=== PATIENT | male | born 1970 | race Caucasian/White ===

== ENCOUNTER → 2024-04-08 | Outpatient (CLI) | payer SELFPAY | END | disposition home or self-care (01) | DX: R42 Dizziness and giddiness (principal); R53.83 Other fatigue; R19.5 Other fecal abnormalities | CPT/HCPCS: 76499 ==

== ENCOUNTER → 2024-09-10 | Outpatient (CLI) | payer SELFPAY | END | disposition home or self-care (01) | DX: E78.2 Mixed hyperlipidemia (principal); E66.9 Obesity, unspecified; Z68.30 Body mass index [BMI] 30.0-30.9, adult | CPT/HCPCS: 76499 ==

== ENCOUNTER → 2025-04-20 | Outpatient (CLI) | payer SELFPAY ==
--- OUTSIDE RECORDS SUMMARY | 2024-09-08 11:20 | XMS RPT_ITS ---
Author Name Auto Generated Organization OHIP Care Team Providers Care Presser Machine Name Role Phone CEDRIC WASHINGTON Attending Unavailable SKUGOR, CEDRIC Primary Care Unavailable SKUGCATIA, CEDRIC Referring Unavailable SKUGOR, CEDRIC Primary Care Unavailable SKUGOR, CEDRIC Attending Unavailable SKUGOR, CEDRIC Primary Care Unavailable SERVANDO THURSTON Attending Unavailable SKUGOR, CEDRIC Primary Care Unavailable PROBLEMS No Problem Records Found PROCEDURES No Procedure Records Found RESULTS CNOV Observed: 09/08/2024 10:20 AM Status: COMPLETED Source: [facility] Office Visit (INMTWN) VALERIO ELLIS ([id number]) 1970 M Date Time Provider Department 09/08/24 10:20 AM [facility] W[facility] During your visit today, we recorded the following information about you: Pulse Blood pressure Weight Height 66/minute 125/74 81 kg 1.74 m Cedric Washington MD 09/08/2024 1:27 PM Signed Chief complaint: Valerio Ellis is a 54 year old adult who presents for a comprehensive problem evaluation. He feels good today and does not have any new complaints. Hx Itchy rash under his arm - resolved Work - at [employer] He lost significant weight ~60 lbs on keto diet He is following a keto/low-carb diet Eats berries and egyptian yogurt He is taking a sodium/magnesium/potassium drink supplement. He stopped Lexapro. Weaned off of bupropion. Colonoscopy 11/2020 Sessile serrated polyp due 5 yrs He thinks that natural sugar from fruit triggers his cravings for sugar. His CT coronary calcium score was 0 on 08/2023 Work: finance Exercise - bike He was taking Valtrex - pos HSV IgG 1 Bupropion and escitalopram 20 mg for depression/anxiety stopped. Up to date with dental and eye exams Latest Ref Rng 08/25/2024 Protein, Total 6.3 - 8.0 g/dL 6.7 Albumin 3.9 - 4.9 g/dL 4.3 Calcium 8.5 - 10.2 mg/dL 9.4 Bilirubin, Total 0.2 - 1.3 mg/dL 0.4 Alkaline Phosphatase 38 - 113 U/L 87 AST 14 - 40 U/L 22 ALT 10 - 54 U/L 21 Glucose 74 - 99 mg/dL 93 BUN 9 - 24 mg/dL 23 Creatinine 0.73 - 1.22 mg/dL 0.90 Sodium 136 - 144 mmol/L 139 Potassium 3.7 - 5.1 mmol/L 4.5 Chloride 98 - 107 mmol/L 104 CO2 22 - 30 mmol/L 25 Anion Gap 8 - 15 mmol/L 10 eGFR >=60 mL/min/1.73m? 101 Cholesterol, Total <=199 mg/dL 222 (H) Triglycerides 30 - 149 mg/dL 51 HDL Cholesterol 40 - 59 mg/dL 75 (H) LDL Chol Calculated <=129 mg/dL 137 (H) LDL-P <=1135 nmol/L 1240 (H) Small LDL-P <=634 nmol/L 200 Large VLDL-P <=2.7 nmol/L 2.2 HDL-P >=33.0 umol/L 34.8 Large HDL-P >=4.2 umol/L 12.3 VLDL Size <=46.7 nm 48.7 (H) HDL Size >=8.9 nm 9.8 EER LipoFit by NMR See Note LDL Size >=20.7 nm 21.6 WBC 3.70 - 11.00 k/uL 5.41 RBC 4.20 - 6.00 m/uL 4.45 Hemoglobin 13.0 - 17.0 g/dL 14.3 Hematocrit 39.0 - 51.0 % 43.0 MCV 80.0 - 100.0 fL 96.6 MCH 26.0 - 34.0 pg 32.1 MCHC 30.5 - 36.0 g/dL 33.3 RDW-CV 11.5 - 15.0 % 12.6 Platelet Count 150 - 400 k/uL 192 MPV 9.0 - 12.7 fL 11.3 Absolute nRBC <0.01 k/uL <0.01 Cholesterol, Total <200 mg/dL 213 (H) Triglyceride <150 mg/dL 40 HDL Cholesterol >39 mg/dL 74 Non HDL Cholesterol <130 mg/dL 139 (H) Fasting Time hrs 12 VLDL Cholesterol <30 mg/dL 8 TC:HDL Ratio <5.10 2.88 LDL Cholesterol <100 mg/dL 131 (H) LDL:HDL Ratio <2.54 1.77 Apolipoprotein A-I >114 mg/dL 181 Apolipoprotein B <90 mg/dL 89 Apolipoprotein B/A-1 Ratio <0.7 0.5 Hemoglobin A1C 4.3 - 5.6 % 5.0 Estimated Average Glucose mg/dL 97 Vitamin D 25 Hydroxy 31.0 - 80.0 ng/mL 60.5 Vitamin B12 232 - 1,245 pg/mL 768 TSH 0.270 - 4.200 mIU/L 1.940 Testosterone ng/dL 455 Cortisol 4.8 - 19.5 ug/dL 15.8 Phosphorus mg/dL 3.6 Magnesium 1.7 - 2.3 mg/dL 2.2 UltraSens C-Reactive Protein <3.1 mg/L 0.5 GGT 10 - 70 U/L 13 Ferritin 30.3 - 565.7 ng/mL 217.0 WSR 0 - 15 mm/hr 2 DHEA-S 44.3 - 331.0 ug/dL 164.3 C-Peptide 1.1 - 4.4 ng/mL 1.7 Insulin, Free 2.6 - 24.9 uU/mL 4.5 Insulin, Total 2.6 - 24.9 uU/mL 6.2 Legend: (H) High PAST MEDICAL HISTORY Diagnosis Date Allergic rhinitis, cause unspecified Depression with anxiety in remission, 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 Drug use: No FAMILY HISTORY Problem Relation Age of Onset Allergies Mother Hypertension Mother Uterine Cancer Mother other (pancreatic ca) Maternal Grandfather Prostate Cancer Paternal Grandfather ? colon ca Hypertension Paternal Grandfather other (duodenal cancer) Paternal Grandfather MEDICATIONS hydrocortisone 2.5 % cream Apply 1 application to affected area two times a day. fluticasone (FLONASE) 50 mcg/actuation nasal spray SPRAY 1 SPRAY INTO EACH NOSTRIL AT BEDTIME valACYclovir (VALTREX) 1 gram tablet Take 2 tablets by mouth two times a day. For 1 day EPINEPHrine (EPIPEN 2-ROBLES) 0.3 mg/0.3 mL auto-injector Inject 0.3 mL intramuscularly as needed (Inject in thigh as needed for anaphylaxis and call 911). GENERIC OKAY Immunization History Administered Date(s) Administered COVID-19 original vaccine, age 12+ yr, monovalent ([email or web address] - KRISHNAN TOP) 02/19/2022 COVID-19 original vaccine, age 12+ yr, monovalent ([employer] - PURPLE TOP) 09/29/2020 10/27/2020 05/03/2021 COVID-19 vaccine, age 12+ yr ([employer] COMIRNATY) 04/25/2023 04/20/2024 COVID-19 vaccine, age 12+ yr, bivalent (MODERNA) 05/01/2024 COVID-19 vaccine, age 12+ yr, bivalent (PFI[employer]ER-BIONTECH) 05/10/2022 influenza (IIV3) vaccine, age 6 mo - 64 yr, trivalent (AFLURIA, FLULAVAL, FLUVIRIN, FLUZONE) 05/01/2024 influenza (IIV3) vaccine, trivalent (AFLURIA, FLULAVAL, FLUVIRIN, FLUZONE) 05/10/1997 influenza (IIV4) vaccine, age 6 mo - 64 yr, quadrivalent (AFLURIA, FLULAVAL, FLUZONE) 05/24/2017 influenza (IIV4) vaccine, age 6 mo - 64 yr, quadrivalent, PF (AFLURIA, FLUARIX, FLULAVAL, FLUZONE) 05/03/2021 influenza (ccIIV3) vaccine, age 6+ mo, trivalent, PF (FLUCELVAX) 04/20/2024 influenza (ccIIV4) vaccine, age 6+ mo, quadrivalent, PF (FLUCELVAX) 05/05/2018 05/06/2020 05/10/2022 tetanus diphtheria pertussis (Tdap) vaccine, age 7+ yr (ADACEL, BOOSTRIX) 10/01/2013 09/03/2023 zoster (RZV) vaccine, recombinant (SHINGRIX) 05/26/2021 10/10/2021 REVIEW OF SYSTEMS General: Denies fever, chills, night sweats or changes in weight. Dermatologic: Denies any new skin conditions, rashes or changing moles. Eyes:Denies recent visual changes. ENT:Denies hearing loss or tinnitus Respiratory: Denies any cough, dyspnea, or wheezing. Cardiovascular:Denies any chest pain with exertion or at rest, palpitations, syncope, or edema. Gastrointestinal: Denies any nausea, vomiting, abdominal pain, heartburn, changes in bowel habit,Denies melena,Denies any rectal bleeding. Genitourinary: Denies dysuria, frequency, urgency, incontinence, erectile dysfunction, and hematuria.,Denies problems with urinary stream. Musculoskeletal:Denies any joint swelling, joint pain, or loss of range of motion.,Denies back pain. Neurologic:Denies any headaches, tremors, dizziness, vertigo, memory loss, confusion.Denies weakness, numbness or tingling. Psychiatric:Denies sleeping problems, denies anxiety or depression. Hematologic/Lymphatic/Immunologic: Denies anemia, bruising, or bleeding abnormalities. Endocrine: Denies any heat or cold intolerance, polyuria or polydipsia. PHYSICAL EXAMINATION: BP 125/74 Pulse 66 Ht 174 cm (5' 8.5) Wt 81 kg (178 lb 9.2 oz) BMI 26.76 kg/m? GENERAL APPEARANCE: well appearing,in no acute distress. SKIN:Skin color, texture, turgor normal. No rashes or lesions. HEAD:No significant findings. EYES:PERRLA EARS: External ears normal. Canals clear. TM's normal. NOSE/SINUSES:Nares normal. Septum midline. OROPHARYNX:Lips, mucosa, and tongue normal, gums normal,oropharynx normal. NECK: Supple,full range of motion,no lymphadenopathy,normal thyroid,no carotid bruits,no JVD. BACK:Back symmetric,Normal curvature,ROM normal,No CVAT. LUNGS: Normal breath sounds,Clear to auscultation,No wheezes,No crackles. HEART:Regular rate and rhythm,Normal heart sounds, S1 and S2,No murmurs. ABDOMEN: Soft,Non-tender,No palpable masses,Normal bowel sounds,No abdominal bruits,No hepatosplenomegaly. EXTREMITIES:Extremities normal,No deformities,No skin discoloration,No edema,Normal pulses bilaterally. NEURO: Awake, alert and oriented x 3,Cranial nerves II-XII grossly intact,Reflexes symmetrical,Normal gait,No involuntary motions. GENITALIA: deferred RECTAL: deferred ASSESSMENT/PLAN: 1. Physical exam, routine - ICD9: V70.0, ICD10: Z00.00 (primary diagnosis) - Counseled on healthy diet and regular exercise 2. Screening for depression - ICD9: V79.0, ICD10: Z13.31 - DEPRESSION SCREENING 3. Encounter for screening examination for other mental health and behavioral disorders - ICD9: V79.8, ICD10: Z13.39 - ANXIETY SCREENING Cedric Washington MD Allergies As of Date: 09/08/2024 Noted Allergy Reaction CLINDAMYCIN 03/15/2006 11 - Vomiting SEASONAL ALLERGIES 07/16/2014 3 - Cough Date Reviewed: 09/08/2024 Reviewed by: Sandra Serrano LPN - Fully Assessed Reason for Visit: Physical [83] Primary Visit Diagnosis:Physical exam, routine [Z00.00] Other Visit Diagnoses:Screening for depression [Z13.31] Encounter for screening examination for other mental health and behavioral disorders [Z13.39] Order(s):DEPRESSION SCREENING [3329463] Order #: [id number]: 1 ANXIETY SCREENING [[id number]] Order #: [id number]: 1 Prescriptions as of 09/08/2024 - hydrocortisone 2.5 % cream Apply 1 application to affected area two times a day. - valACYclovir (VALTREX) 1 gram tablet Take 2 tablets by mouth two times a day. For 1 day - EPINEPHrine (EPIPEN 2-ROBLES) 0.3 mg/0.3 mL auto-injector Inject 0.3 mL intramuscularly as needed (Inject in thigh as needed for anaphylaxis and call 911). GENERIC OKAY Problem List As Of Date 09/08/2024 Noted Resolved Allergic rhinitis, cause unspecified [J30.9] 04/22/2012 Essential hypertension, benign [I10] 04/22/2012 10/01/2013 BPPV (benign paroxysmal positional vertigo), le*10/12/2020 Medications Discontinued During This Encounter Prescriptions - fluticasone (FLONASE) 50 mcg/actuation nasal spray (Discontinued) SPRAY 1 SPRAY INTO EACH NOSTRIL AT BEDTIME Disposition: Return in about 1 year (around 09/08/2025) for Dr Washington, physical exam. Follow-up and Disposition History for Encounter Date Provider Department Center 09/08/2024 [id number] WASHINGTON INMT[facility] Encounter Status:Closed by CEDRIC WASHINGTON on 09/08/24 PROGRESS Observed: 09/08/2024 10:13 AM Status: COMPLETED Source: [facility] ID: [id number] Author: CEDRIC WASHINGTON MD Service: ? Author Type: Physician Type: [facility] Notes Filed: 09/08/2024 13:27 Note Text: Chief complaint: Valerio Ellis is a 54 year old adult who presents for a comprehensive problem evaluation. He feels good today and does not have any new complaints. Hx Itchy rash under his arm - resolved Work - at [employer] He lost significant weight ~60 lbs on keto diet He is following a keto/low-carb diet Eats berries and egyptian yogurt He is taking a sodium/magnesium/potassium drink supplement. He stopped Lexapro. Weaned off of bupropion. Colonoscopy 11/2020 Sessile serrated polyp due 5 yrs He thinks that natural sugar from fruit triggers his cravings for sugar. His CT coronary calcium score was 0 on 08/2023 Work: finance Exercise - bike He was taking Valtrex - pos HSV IgG 1 Bupropion and escitalopram 20 mg for depression/anxiety stopped. Up to date with dental and eye exams Latest Ref Rng 08/25/2024 Protein, Total 6.3 - 8.0 g/dL 6.7 Albumin 3.9 - 4.9 g/dL 4.3 Calcium 8.5 - 10.2 mg/dL 9.4 Bilirubin, Total 0.2 - 1.3 mg/dL 0.4 Alkaline Phosphatase 38 - 113 U/L 87 AST 14 - 40 U/L 22 ALT 10 - 54 U/L 21 Glucose 74 - 99 mg/dL 93 BUN 9 - 24 mg/dL 23 Creatinine 0.73 - 1.22 mg/dL 0.90 Sodium 136 - 144 mmol/L 139 Potassium 3.7 - 5.1 mmol/L 4.5 Chloride 98 - 107 mmol/L 104 CO2 22 - 30 mmol/L 25 Anion Gap 8 - 15 mmol/L 10 eGFR >=60 mL/min/1.73m? 101 Cholesterol, Total <=199 mg/dL 222 (H) Triglycerides 30 - 149 mg/dL 51 HDL Cholesterol 40 - 59 mg/dL 75 (H) LDL Chol Calculated <=129 mg/dL 137 (H) LDL-P <=1135 nmol/L 1240 (H) Small LDL-P <=634 nmol/L 200 Large VLDL-P <=2.7 nmol/L 2.2 HDL-P >=33.0 umol/L 34.8 Large HDL-P >=4.2 umol/L 12.3 VLDL Size <=46.7 nm 48.7 (H) HDL Size >=8.9 nm 9.8 EER LipoFit by NMR See Note LDL Size >=20.7 nm 21.6 WBC 3.70 - 11.00 k/uL 5.41 RBC 4.20 - 6.00 m/uL 4.45 Hemoglobin 13.0 - 17.0 g/dL 14.3 Hematocrit 39.0 - 51.0 % 43.0 MCV 80.0 - 100.0 fL 96.6 MCH 26.0 - 34.0 pg 32.1 MCHC 30.5 - 36.0 g/dL 33.3 RDW-CV 11.5 - 15.0 % 12.6 Platelet Count 150 - 400 k/uL 192 MPV 9.0 - 12.7 fL 11.3 Absolute nRBC <0.01 k/uL <0.01 Cholesterol, Total <200 mg/dL 213 (H) Triglyceride <150 mg/dL 40 HDL Cholesterol >39 mg/dL 74 Non HDL Cholesterol <130 mg/dL 139 (H) Fasting Time hrs 12 VLDL Cholesterol <30 mg/dL 8 TC:HDL Ratio <5.10 2.88 LDL Cholesterol <100 mg/dL 131 (H) LDL:HDL Ratio <2.54 1.77 Apolipoprotein A-I >114 mg/dL 181 Apolipoprotein B <90 mg/dL 89 Apolipoprotein B/A-1 Ratio <0.7 0.5 Hemoglobin A1C 4.3 - 5.6 % 5.0 Estimated Average Glucose mg/dL 97 Vitamin D 25 Hydroxy 31.0 - 80.0 ng/mL 60.5 Vitamin B12 232 - 1,245 pg/mL 768 TSH 0.270 - 4.200 mIU/L 1.940 Testosterone ng/dL 455 Cortisol 4.8 - 19.5 ug/dL 15.8 Phosphorus mg/dL 3.6 Magnesium 1.7 - 2.3 mg/dL 2.2 UltraSens C-Reactive Protein <3.1 mg/L 0.5 GGT 10 - 70 U/L 13 Ferritin 30.3 - 565.7 ng/mL 217.0 WSR 0 - 15 mm/hr 2 DHEA-S 44.3 - 331.0 ug/dL 164.3 C-Peptide 1.1 - 4.4 ng/mL 1.7 Insulin, Free 2.6 - 24.9 uU/mL 4.5 Insulin, Total 2.6 - 24.9 uU/mL 6.2 Legend: (H) High PAST MEDICAL HISTORY Diagnosis Date Allergic rhinitis, cause unspecified Depression with anxiety in remission, 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 Drug use: No FAMILY HISTORY Problem Relation Age of Onset Allergies Mother Hypertension Mother Uterine Cancer Mother other (pancreatic ca) Maternal Grandfather Prostate Cancer Paternal Grandfather ? colon ca Hypertension Paternal Grandfather other (duodenal cancer) Paternal Grandfather MEDICATIONS hydrocortisone 2.5 % cream Apply 1 application to affected area two times a day. fluticasone (FLONASE) 50 mcg/actuation nasal spray SPRAY 1 SPRAY INTO EACH NOSTRIL AT BEDTIME valACYclovir (VALTREX) 1 gram tablet Take 2 tablets by mouth two times a day. For 1 day EPINEPHrine (EPIPEN 2-ROBLES) 0.3 mg/0.3 mL auto-injector Inject 0.3 mL intramuscularly as needed (Inject in thigh as needed for anaphylaxis and call 911). GENERIC OKAY Immunization History Administered Date(s) Administered COVID-19 original vaccine, age 12+ yr, monovalent ([email or web address] - KRISHNAN TOP) 02/19/2022 COVID-19 original vaccine, age 12+ yr, monovalent ([employer] - PURPLE TOP) 09/29/2020 10/27/2020 05/03/2021 COVID-19 vaccine, age 12+ yr ([employer] COMIRNATY) 04/25/2023 04/20/2024 COVID-19 vaccine, age 12+ yr, bivalent (MODERNA) 05/01/2024 COVID-19 vaccine, age 12+ yr, bivalent ([employer]) 05/10/2022 influenza (IIV3) vaccine, age 6 mo - 64 yr, trivalent (AFLURIA, FLULAVAL, FLUVIRIN, FLUZONE) 05/01/2024 influenza (IIV3) vaccine, trivalent (AFLURIA, FLULAVAL, FLUVIRIN, FLUZONE) 05/10/1997 influenza (IIV4) vaccine, age 6 mo - 64 yr, quadrivalent (AFLURIA, FLULAVAL, FLUZONE) 05/24/2017 influenza (IIV4) vaccine, age 6 mo - 64 yr, quadrivalent, PF (AFLURIA, FLUARIX, FLULAVAL, FLUZONE) 05/03/2021 influenza (ccIIV3) vaccine, age 6+ mo, trivalent, PF (FLUCELVAX) 04/20/2024 influenza (ccIIV4) vaccine, age 6+ mo, quadrivalent, PF (FLUCELVAX) 05/05/2018 05/06/2020 05/10/2022 tetanus diphtheria pertussis (Tdap) vaccine, age 7+ yr (ADACEL, BOOSTRIX) 10/01/2013 09/03/2023 zoster (RZV) vaccine, recombinant (SHINGRIX) 05/26/2021 10/10/2021 REVIEW OF SYSTEMS General: Denies fever, chills, night sweats or changes in weight. Dermatologic: Denies any new skin conditions, rashes or changing moles. Eyes:Denies recent visual changes. ENT:Denies hearing loss or tinnitus Respiratory: Denies any cough, dyspnea, or wheezing. Cardiovascular:Denies any chest pain with exertion or at rest, palpitations, syncope, or edema. Gastrointestinal: Denies any nausea, vomiting, abdominal pain, heartburn, changes in bowel habit,Denies melena,Denies any rectal bleeding. Genitourinary: Denies dysuria, frequency, urgency, incontinence, erectile dysfunction, and hematuria.,Denies problems with urinary stream. Musculoskeletal:Denies any joint swelling, joint pain, or loss of range of motion.,Denies back pain. Neurologic:Denies any headaches, tremors, dizziness, vertigo, memory loss, confusion.Denies weakness, numbness or tingling. Psychiatric:Denies sleeping problems, denies anxiety or depression. Hematologic/Lymphatic/Immunologic: Denies anemia, bruising, or bleeding abnormalities. Endocrine: Denies any heat or cold intolerance, polyuria or polydipsia. PHYSICAL EXAMINATION: BP 125/74 Pulse 66 Ht 174 cm (5' 8.5) Wt 81 kg (178 lb 9.2 oz) BMI 26.76 kg/m? GENERAL APPEARANCE: well appearing,in no acute distress. SKIN:Skin color, texture, turgor normal. No rashes or lesions. HEAD:No significant findings. EYES:PERRLA EARS: External ears normal. Canals clear. TM's normal. NOSE/SINUSES:Nares normal. Septum midline. OROPHARYNX:Lips, mucosa, and tongue normal, gums normal,oropharynx normal. NECK: Supple,full range of motion,no lymphadenopathy,normal thyroid,no carotid bruits,no JVD. BACK:Back symmetric,Normal curvature,ROM normal,No CVAT. LUNGS: Normal breath sounds,Clear to auscultation,No wheezes,No crackles. HEART:Regular rate and rhythm,Normal heart sounds, S1 and S2,No murmurs. ABDOMEN: Soft,Non-tender,No palpable masses,Normal bowel sounds,No abdominal bruits,No hepatosplenomegaly. EXTREMITIES:Extremities normal,No deformities,No skin discoloration,No edema,Normal pulses bilaterally. NEURO: Awake, alert and oriented x 3,Cranial nerves II-XII grossly intact,Reflexes symmetrical,Normal gait,No involuntary motions. GENITALIA: deferred RECTAL: deferred ASSESSMENT/PLAN: 1. Physical exam, routine - ICD9: V70.0, ICD10: Z00.00 (primary diagnosis) - Counseled on healthy diet and regular exercise 2. Screening for depression - ICD9: V79.0, ICD10: Z13.31 - DEPRESSION SCREENING 3. Encounter for screening examination for other mental health and behavioral disorders - ICD9: V79.8, ICD10: Z13.39 - ANXIETY SCREENING Cedric Washington MD URINALYSIS COMPLETE PNL UR Collected: 08/25/2024 9:43 AM Status: F Source: [facility] Order Comment: Specimen Type : URINE SPECIMEN Ordering Facility: [facility] Address: [address] [place] [address] TYPE CODE TESTS RESULT OUT OF RANGE REFERENCE UNITS LAB 5778-6(LOINC) Color Ur Yellow Yellow LAB 04260-3(LOINC) Clarity Spec Clear Clear LAB 5792-7(LOINC) Glucose Ur Strip-mCnc Negative Negative LAB 5770-3(LOINC) Bilirub Ur Ql Strip Negative Negative LAB 2514-8(LOINC) Ketones Ur Strip Negative Negative LAB 5811-5(LOINC) Sp Gr Ur Strip 1.023 1.005-1.030 LAB 5794-3(LOINC) Hgb Ur Ql Strip Negative Negative LAB 5803-2(LOINC) pH Ur Strip 5.5 <8.5 LAB 5804-0(LOINC) Prot Ur Strip-mCnc Negative Negative LAB 5818-0(LOINC) Urobilinogen Ur Strip 0.2 EU/dL 0.2-1.0 EU/dL LAB 5802-4(LOINC) Nitrite Ur Ql Strip Negative Negative LAB 5799-2(LOINC) Leukocyte esterase Ur Ql Strip Negative Negative LAB 5821-4(LOINC) WBC #/area UrnS HPF 0-5 /HPF 0-5 /HPF LAB 70724-3(LOINC) RBC #/area UrnS HPF 0-2 /HPF 0-2 /HPF LAB 5769-5(LOINC) Bacteria #/area UrnS HPF Negative Negative /HPF LAB 5787-7(LOINC) Epi Cells #/area UrnS HPF None Seen /HPF LAB 5796-8(LOINC) Hyaline Casts #/area UrnS LPF 0 /LPF 0 /LPF Performed By: #### [id number] # ### [facility] CLIA [id number] [address] [place] [address] [place] [address] [place] 25(OH)D3 SERPL-MCNC Collected: 08/25/19 9:35 AM Status: F Source: [facility] Comment: Specimen Type : BLOOD SPECIMEN Ordering Facility: [facility] Address: [address] [place] [address] TYPE CODE TESTS RESULT OUT OF RANGE REFERENCE UNITS LAB 1988-09(LOINC) 25(OH)D3 SerPl-mCnc 60.5 31.0-80.0 ng/mL Result Comment: Classificati on of 25 OH Vitamin D status: Deficiency/Insufficiency: < or = 30 ng/ml. Sufficiency/Optimal Levels: 31-80 ng/mL Toxicity: > 100 ng/mL. Test performed by chemiluminescent immunoassay. Performed By: #### 1988-09 ## ## [facility] CLIA [id number] [address] [place] [address] APOLIPOPROTEIN A+B Collected: 08/25/2024 9:35 AM Sta tus: F Source: [facility] Comment: Specimen Type : BLOOD SPECIMEN Ordering Facility: [facility] Address: [address] [place] [address] TYPE CODE TESTS RESULT OUT OF RANGE REFERENCE UNITS LAB 1869-7(LOINC) Apo A-I SerPl-mCnc 181 >114 mg/dL LAB 1884-6(LOINC) Apo B SerPl-mCnc 89 <90 m g/dL LAB BARAT APOLIPOPROTEIN B/A-1 RATIO 0.5 <0.7 Performed By: #### APOAB ### # [facility] CLIA [id number] [address] [place] [address] LIPOPROTEIN FRACTIONATION BY NMR WITH LIPIDS Collected: 08/25/2024 9:35 AM Status: F Source: [facility] Comment: Specimen Type : BLOOD SPECIMEN Ordering Facility: [facility] Address: [address] [place] [address] TYPE CODE TESTS RESULT OUT OF RANGE REFERENCE UNITS LAB HCHOLT TOTAL CHOLESTEROL 222 High <=199 mg/dL LAB HTRIG TRIGLYCERIDES 51 30-149 mg/dL LAB HHDLCH HDL CHOLESTEROL 75 High 40-59 mg/dL LAB HLDLCA LDL CHOL CALCULATED 137 High <=129 mg/dL LAB HLDLP LDL PARTICLE NUMBER, NMR 1240 High <=1135 nmol/L Result Comment: REFERENCE IN TERVAL: LDL Particle Number, NMR Low............... Less than 1136 Moderate.......... 1136 - 1449 Borderline High... 1450 - 1764 High.............. 1765 - 2186 Very High......... Greater than 2186 Percentiles in Reference Population: 20th 50th 80th 95th 1136 1450 1765 2186 Percentiles consistent with those from NCEP ATP III LDL-C cutpoints of 100 mg/dL(20th percentile) and 160 mg/dL (80th percentile). LAB HSMLDL SMALL LDL PARTICLE NUMBER, NMR 200 <=634 nmol/L Result Comment: INTERPRETIVE INFORMATION: Small LDL Particle Number, NMR Percentiles in Reference Population: 25th 50th 75th [phone] LAB HLVDLP LARGE VLDL PARTICLE NUMBER, NMR 2.2 <=2.7 nmol/L Result Comment: INTERPRETIVE INFORMATION: Large VLDL Particle Number, NMR Percentiles in Reference Population: 25th 50th 75th 0.9 2.7 7.0 LAB HHDLP HDL PARTICLE NUMBER, NMR 34.8 >=33.0 umol/L Result Comment: INTERPRETIVE INFORMATION: HDL Particle Number, NMR Percentiles in Reference Population: 25th 50th 75th 29.7 33.0 36.8 LAB HLHDLP LARGE HDL PARTICLE NUMBER, NMR 12.3 >=4.2 umol/L Result Comment: INTERPRETIVE INFORMATION: Large HDL Particle Number, NMR Percentiles in Reference Population: 25th 50th 75th 2.0 4.2 7.3 LAB HVLDLS VLDL PARTICLE SIZE, NMR 48.7 High <=46.7 nm Result Comment: INTERPRETIVE INFORMATION: VLDL Particle Size, NMR Percentiles in Reference Population: 25th 50th 75th 44.3 46.7 50.2 LAB HHDLS HDL PARTICLE SIZE, NMR 9.8 >=8.9 nm Result Comment: INTERPRETIVE INFORMATION: HDL Particle Size, NMR Percentiles in Reference Population: 25th 50th 75th 8.6 8.9 9.3 LAB [id number] EER LIPOFIT BY NMR See Note Result Comment: Authorized i ndividuals can access the [facility] Enhanced Report with an [facility] Connect account using the following link. Your local lab can assist you in obtaining the patient report if you don't have a Connect account. [email or web address] INTERPRETIVE INFORMATION: LipoFit by NMR This test was developed and its performance characteristics determined by [facility]. It has not been cleared or approved by the US Food and Drug Administration. This test was performed in a CLIA certified laboratory and is intended for clinical purposes. Performed By: [facility] [address] [place] [address] Tool Setter: Jarad Thorpe MD, PhD CLIA Number: [id number] LAB HLDLS LDL PARTICLE SIZE, NMR 21.6 >=20.7 nm Result Comment: INTERPRETIVE INFORMATION: LDL Particle Size, NMR Percentiles in Reference Population: 25th 50th 75th 19.6 20.7 22.5 Performed By: #### NMRLPD ## ## [employer] CLIA [id number] [address] [place] [address] DEPRECATED HGB A1C BLD Collected: 08/25 9:35 AM Status: F Source: [facility] Order Comment: Specimen Type : BLOOD SPECIMEN Ordering Facility: [facility] Address: [address] [place] [address] TYPE CODE TESTS RESULT OUT OF RANGE REFERENCE UNITS LAB 4548-4(LOINC) HbA1c MFr Bld 5.0 4.3-5.6 % Result Comment: [place] Velma betes Association guidelines indicate that patients with HgbA1c in the range 5.7-6.4% are at increased risk for development of diabetes, and intervention by lifestyle modification may be beneficial. HgbA1c greater or equal to 6.5% is considered diagnostic of diabetes. LAB 32419-4(LOINC) Est. average glucose Bld gHb Est-mCnc 97 mg/dL Result Comment: eAG: (Estima joanna average glucose) is a calculated value from HgbA1c and is goodwill representative of the average blood glucose level in the last 2-3 month period. Performed By: #### 77453-0 # ### [facility] CLIA [id number] [address] [place] [address] OF LUCY GGT SERPL-CCNC Collected: 08/25/2024 9:35 AM Status: F Source: [facility] Comment: Specimen Type : BLOOD SPECIMEN Ordering Facility: [facility] Address: [address] [place] [address] TYPE CODE TESTS RESULT OUT OF RANGE REFERENCE UNITS LAB 2324-2(LOINC) GGT SerPl-cCnc 13 10-70 U/L Performed By: #### 2324-2, 1 9123-9, 09811-8, 2276-4, 2777-1 #### [facility] CLIA [id number] [address] [place] [address] CRP SERPL HS-MCNC Collected: 9:35 AM Status: F Source: [facility] Comment: Specimen Type : BLOOD SPECIMEN Ordering Facility: [facility] Address: [address] [place] [address] TYPE CODE TESTS RESULT OUT OF RANGE REFERENCE UNITS LAB 52181-9(LOINC) CRP SerPl HS-mCnc 0.5 <3.1 mg/L Result Comment: hsCRP < 1.0 mg/L, relative risk is low hsCRP 1.0-3.0 mg/L, relative risk is average hsCRP > 3.0 mg/L, relative risk is high Reference: Carla TA, Pedro GA, Ed RW, et al. Markers of Inflammation and Cardiovascular Disease. Application to Clinical and Public Health Practice. A Statement for Healthcare Professionals from the Centers for Disease Control and Prevention and the [place] [employer] Association. Circulation 2003;107:499-511. Performed By: #### 2324-2, 1 9123-9, 95374-6, 2276-4, 2777-1 #### [facility] CLIA [id number] [address] [place] [address] OF [facility] MAGNESIUM SERPL-MCNC Collected: 08/25/2024 9:35 AM S tatus: F Source: [facility] Comment: Specimen Type : BLOOD SPECIMEN Ordering Facility: [facility] Address: [address] [place] [address] TYPE CODE TESTS RESULT OUT OF RANGE REFERENCE UNITS LAB 42236-3(LOINC) Magnesium SerPl-mCnc 2.2 1.7-2.3 mg/dL Performed By: #### 2324-2, 1 9123-9, 24318-3, 2276-4, 2777-1 #### [facility] CLIA [id number] [address] [place], [place] [address] [place] PHOSPHATE SERPL-MCNC Collected: 08/25/2024 9:35 AM S tatus: F Source: [facility] Order Comment: Specimen Type : BLOOD SPECIMEN Ordering Facility: [facility] Address: [address] [place] [address] TYPE CODE TESTS RESULT OUT OF RANGE REFERENCE UNITS LAB 2777-1(LOINC) Phosphate SerPl-mCnc 3.6 mg/dL Performed By: #### 2324-2, 1 23-9, 01096-6, 2276-4, 2777-1 #### [facility] CLIA [id number] [address] [place] [address] [place] FERRITIN SERPL-MCNC Collected: 08/25/19 9:35 AM Status: F Source: [facility] Comment: Specimen Type : BLOOD SPECIMEN Ordering Facility: [facility] Address: [address] [place] [address] TYPE CODE TESTS RESULT OUT OF RANGE REFERENCE UNITS LAB 2276-4(LOINC) Ferritin SerPl-mCnc 217.0 30.3-565.7 ng/mL Performed By: #### 2324-2, 1 23-9, 00529-0, 2276-4, 2777-1 #### [facility] CLIA [id number] [address] [place] [address] [place] VIT B12 SERPL-MCNC Collected: 08/25/2024 9:35 AM Sta tus: F Source: [facility] Order Comment: Specimen Type : BLOOD SPECIMEN Ordering Facility: [facility] Address: [address] [place] [address] TYPE CODE TESTS RESULT OUT OF RANGE REFERENCE UNITS LAB 2132-9([facility]) Vit B12 SerPl-mCnc 368 444-5332 pg/mL Performed By: #### 213-9 ## ## [facility] CLIA [id number] [address] [place] [address] [place] C PEPTIDE SERPL-MCNC Collected: 08/25/2024 9:35 AM S tatus: F Source: [facility] Comment: Specimen Type : BLOOD SPECIMEN Ordering Facility: [facility] Address: [address] [place] [address] TYPE CODE TESTS RESULT OUT OF RANGE REFERENCE UNITS LAB 1986-03([facility]) C peptide SerPl-mCnc 1.7 1.1-4.4 ng/mL Performed By: #### 1986-9, 2 0448-7 #### [facility] CLIA [id number] [address] [place] [address] [place] INSULIN SERPL-ACNC Collected: 08/25/2024 9:35 AM Sta tus: F Source: [facility] Comment: Specimen Type : BLOOD SPECIMEN Ordering Facility: [facility] Address: [address] [place] [address] TYPE CODE TESTS RESULT OUT OF RANGE REFERENCE UNITS LAB 19712-9(INC) Insulin SerPl-aCnc 6.2 2.6-24.9 uU/mL Performed By: #### 1986-9, 2 04487 #### [facility] CLIA [id number] [address] [place] [address] [place] CBC PNL BLD AUTO Collected: 9:35 AM Status: F Source: [facility] Comment: Specimen Type : BLOOD SPECIMEN Ordering Facility: [facility] Address: [address] [place] [address] TYPE CODE TESTS RESULT OUT OF RANGE REFERENCE UNITS LAB 6690-2(LOINC) WBC # Bld Auto 5.41 3.70-11.00 k/uL LAB 789-8(LOINC) RBC # Bld Auto 4.45 4.20-6.00 m/uL LAB 718-7([facility]) Hgb Bld-mCnc 14.3 13.0-17.0 g/dL LAB 4544-3([facility]) Hct VFr Bld Auto 43.0 39.0-51.0 % LAB 787-2([facility]) MCV RBC Auto 96.6 80.0-100.0 fL LAB 785-6([facility]) MCH RBC Qn Auto 32.1 26.0-34.0 pg LAB 786-4([facility]) MCHC RBC Auto-mCnc 33.3 30.5-36.0 g/dL LAB 14608-3([facility]) RDW RBC-Rto 12.6 11.5-15.0 % LAB 777-3([facility]) Platelet # Bld Auto 192 150-400 k/uL LAB 29942-4([facility]) PMV Bld Auto 11.3 9.0-12.7 fL LAB 771-6([facility]) nRBC # Bld Auto <0.01 <0.01 k/uL Performed By: #### 4537-7, 5 8410-2 #### [facility] CLIA [id number] [address] [place] [address] [place] ESR BLD QN WESTRGRN Collected: 08/25/2024 9:[address] atus: F Source: [facility] Order Comment: Specimen Type : BLOOD SPECIMEN Ordering Facility: [facility] Address: [address] [place] [address] TYPE CODE TESTS RESULT OUT OF RANGE REFERENCE UNITS LAB 4537-7([facility]) ESR Bld Qn Westrgrn 2 0-15 mm/hr Performed By: #### 4537-7, 5 8410-2 #### [facility] CLIA [id number] [address] [place] [address] [place] TESTOST SERPL-MCNC Collected: 08/25/2024 9:35 AM Sta tus: F Source: [facility] Order Comment: Specimen Type : BLOOD SPECIMEN Ordering Facility: [facility] Address: [address] [place] [address] TYPE CODE TESTS RESULT OUT OF RANGE REFERENCE UNITS LAB 2986-8(LOINC) Testost SerPl-mCnc 455 ng/dL Performed By: #### 2986-8, 2 143-6 #### [facility] CLIA [id number] [address] [place] [address] [place] CORTIS SERPL-MCNC Collected: 08/25/2024 9:35 AM Stat us: F Source: [facility] Order Comment: Specimen Type : BLOOD SPECIMEN Ordering Facility: [facility] Address: [address] [place] [address] TYPE CODE TESTS RESULT OUT OF RANGE REFERENCE UNITS LAB 2143-6(LOINC) Cortis SerPl-mCnc 15.8 4.8-19.5 ug/dL Result Comment: Provided ref erence range is from 6-10 AM sample collection time. Cortisol Reference Range: 6-10 AM = 4.8-19.5 ug/dL, 4-8 PM = 2.5-11.9 ug/dL Performed By: #### 2986-8, 2 143-6 #### [facility] CLIA [id number] [address] [place] [address] [place] INSULIN, FREE, SERUM Collected: 025 9:35 AM Status: F Source: [facility] Order Comment: Specimen Type : BLOOD SPECIMEN Ordering Facility: [facility] Address: [address] [place] [address] TYPE CODE TESTS RESULT OUT OF RANGE REFERENCE UNITS LAB 6901-3(LOINC) Insulin Free SerPl-aCnc 4.5 2.6-24.9 uU/mL Result Comment: Reference in tervals established for fasting specimens. This test was developed, and its performance characteristics determined by the [facility] Department of Pathology and Laboratory Medicine. It has not been cleared or approved by the FDA. The [facility] Department of Pathology and Laboratory Medicine is regulated under CLIA as qualified to perform high- complexity testing. This test is used for clinical purposes. It should not be regarded as investigational or for research. Performed By: #### [id number] # ### [facility] CLIA [id number] [address] [facility] [place] [id number] [place] COMP METAB 2000 PNL SERPL Collected: 9:35 AM Status: F Source: [facility] Order Comment: Specimen Type : BLOOD SPECIMEN Ordering Facility: [facility] Address: [address] [place] [address] TYPE CODE TESTS RESULT OUT OF RANGE REFERENCE UNITS LAB 2885-2(LOINC) Prot SerPl-mCnc 6.7 6.3-8.0 g/dL LAB 1751-7(LOINC) Albumin SerPl-mCnc 4.3 3.9-4.9 g/dL LAB 73309-0(LOINC) Calcium SerPl-mCnc 9.4 8.5-10.2 mg/dL LAB 1975-2(LOINC) Bilirub SerPl-mCnc 0.4 0.2-1.3 mg/dL LAB 6768-6(LOINC) ALP SerPl-cCnc 87 38-113 U/L LAB 1920-8(LOINC) AST SerPl-cCnc 22 14-40 U/L LAB 1742-6(LOINC) ALT SerPl-cCnc 21 10-54 U/L LAB 2345-7(LOINC) Glucose SerPl-mCnc 93 74-99 mg/dL Result Comment: The [place] Diabetes Association (ADA) provides guidance for cutoff values for fasting glucose and random glucose. The ADA defines fasting as no caloric intake for at least 8 hours. Fasting plasma glucose results between 100 to 125 mg/dL indicate increased risk for diabetes (prediabetes). Fasting plasma glucose results greater than or equal to 126 mg/dL meet the criteria for diagnosis of diabetes. In the absence of unequivocal hyperglycemia, results should be confirmed by repeat testing. In a patient with classic symptoms of hyperglycemia or hyperglycemic crisis, random plasma glucose results greater than or equal to 200 mg/dL meet the criteria for diagnosis of diabetes. Reference: Standards of Medical Care in Diabetes 2016, [place] Diabetes Association. Diabetes Care. 2016.39(Suppl 1). LAB 3094-0(LOINC) BUN SerPl-mCnc 23 9-24 mg/ dL LAB 2160-0(LOINC) Creat SerPl-mCnc 0.90 0.73-1.22 mg/dL LAB 2951-2(LOINC) Sodium SerPl-sCnc 139 136-144 mmol/L LAB 2823-3(LOINC) Potassium SerPl-sCnc 4.5 3.7-5.1 mmol/L LAB 2075-0(LOINC) Chloride SerPl-sCnc 104 98-107 mmol/L LAB 8-9(LOINC) CO2 SerPl-sCnc 25 22-30 mmo l/L LAB 82692-8(LOINC) Anion Gap SerPl-sCnc 10 8-15 mmol/L LAB 22599-5(LOINC) Creatinine + eGFR Pnl SerPlBld 101 >=60 mL/min/1 .73m??? Result Comment: Estimated Gl omerular Filtration Rate (eGFR) is calculated using the 2020 CKD-EPI creatinine equation. This equation utilizes serum creatinine, sex, and age as parameters. The creatinine assay has traceable calibration to isotope dilution-mass spectrometry. Refer to KDIGO guidelines for clinical interpretation. In patients with unstable renal function, e.g. those with acute kidney injury, the eGFR may not accurately reflect actual GFR. Performed By: #### 23202-8, 02719-9, DHEAS, 3016-3 #### [facility] CLIA [id number] [address] [place] [address] [place] LIPID 1996 PNL SERPL Collected: 025 9:35 AM Status: F Source: [facility] Order Comment: Specimen Type : BLOOD SPECIMEN Ordering Facility: [facility] Address: [address] [place] [address] TYPE CODE TESTS RESULT OUT OF RANGE REFERENCE UNITS LAB 2092-3(LOINC) Cholest SerPl-mCnc 213 High <200 mg/dL Result Comment: <200 mg/dL, Desirable 200-239 mg/dL, Borderline high >239 mg/dL, High LAB 2571-8(LOINC) Trigl SerPl-mCnc 40 <150 mg/dL Result Comment: <150 mg/dL, Normal 150-199 mg/dL, Borderline high 200-499 mg/dL, High >499 mg/dL, Very high LAB 5-9(LOINC) HDLc SerPl-mCnc 74 >39 mg/dL Result Comment: 40-59 mg/dL, Acceptable >59 mg/dL, High: Negative risk factor for coronary heart disease <40 mg/dL, Low: Positive risk factor for coronary heart disease LAB 06263-7(LOINC) NonHDLc SerPl-mCnc 139 High <130 mg/dL Result Comment: <130 mg/dL, Optimal 130-159 mg/dL, Near optimal/above optimal 160-189 mg/dL, Borderline high 190-219 mg/dL, High >219 mg/dL, Very high Secondary prevention optimal non HDL Cholesterol levels are recommended to be <100 mg/dL LAB FT FASTING TIME 12 hrs LAB 79120-7([facility]) VLDLc SerPl Calc-mCnc 8 <30 mg/dL LAB 9830-1(INC) Cholest/HDLc SerPl 2.88 <5.10 LAB 2089-1([facility]) LDLc SerPl-mCnc 131 High <100 mg/dL Result Comment: <100 mg/dL, Optimal 100-129 mg/dL, Near optimal/above optimal 130-159 mg/dL, Borderline high 160-189 mg/dL, High >189 mg/dL, Very high Secondary prevention optimal LDL Cholesterol levels are recommended to be < 70 mg/dL LAB 38516-1([facility] LDLc/HDLc SerPl 1.77 <2.54 Result Comment: Reference: 1. National Cholesterol Education Program ATP III Guideline At-A-Glance Quick Desk Reference: National Heart, Lung, and Blood [place]. National Institutes of Health. 2001: NIH Publication No. 01-3305. 2. An International Atherosclerosis Society position paper: global recommendations for the management of dyslipidemia: executive summary, Atherosclerosis. 2014: 232(2):410-413. Performed By: #### 08793-8, 12130-2, DHEAS, 3016-3 #### [facility] CLIA [id number] [address] [place] [address] [place] DHEA-S BLD Collected: 5 9:35 AM Status: F Source: [facility] Order Comment: Specimen Type : BLOOD SPECIMEN Ordering Facility: [facility] Address: [address] [place] [address] TYPE CODE TESTS RESULT OUT OF RANGE REFERENCE UNITS LAB 2191-5(LOINC) DHEA-S SerPl-mCnc 164.3 44.3-331.0 ug/dL Result Comment: Reference ra nges are age and gender specific. For additional information, reference range tables can be found in the laboratory test directory. The normal values are based on the following source: Dehydroepiandrosterone sulfate (DHEA S) [package insert V 17.0 Citizen Of [place]]. [facility], [place], [place]: February 2013. Performed By: #### 78937-0, 74763-0, DHEAS, 3016-3 #### [facility] CLIA [id number] [address] [place] [address] [place] TSH SERPL-ACNC Collected: 9:35 AM Status: F Source: [facility] Order Comment: Specimen Type : BLOOD SPECIMEN Ordering Facility: [facility] Address: [address] [place] [address] TYPE CODE TESTS RESULT OUT OF RANGE REFERENCE UNITS LAB 3016-3([facility]) TSH SerPl-aCnc 1.940 0.270-4.200 mIU/L Performed By: #### 06520-6, 52133-4, DHEAS, 3016-3 #### [facility] CLIA [id number] [address] [place] [address] OF LUCY PROGRESS Observed: 06/22/2024 7:26 PM Status: COMPLETED Source: [facility] HNO ID: [id number] Author: CEDRIC WASHINGTON MD Service: ? Author Type: Physician Type: Progress Notes Filed: 06/22/2024 22:54 Note Text: Valerio Ellis is a 54 year old adult who presents for Follow Up (Itching rash on under arms, no new detergents or deodorants ) HPI: Itchy rash under his arm Work - at [employer] He feels good today He lost significant weight ~60 lbs on keto diet He is following a keto/low-carb diet He is taking a sodium/magnesium/potassium drink supplement. He stopped Lexapro. Weaned off of bupropion. Colonoscopy 11/2020 Sessile serrated polyp due 5 yrs He thinks that natural sugar from fruit triggers his cravings for sugar. 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 Up to date with dental and eye exams Creatinine Date Value Ref Range Status 02/08/2024 1.08 0.73 - 1.22 mg/dL Final 01/16/2024 1.19 0.76 - 1.27 MG/DL Final 08/27/2023 1.15 0.73 - 1.22 mg/dL Final 09/28/2022 1.00 0.73 - 1.22 mg/dL Final Lab Results Component Value Date HBA1C 5.7 01/16/2024 HBA1C 5.2 08/27/2023 HBA1C 5.0 09/28/2022 Last 10 Encounter Wt Readings: Date: Wt: 06/22/2024 82 kg (180 lb 12.4 oz) 06/08/2024 83 kg (183 lb) 02/10/2024 93.1 kg (205 lb 4 oz) 09/03/2023 106.6 kg (235 lb) 07/25/2023 114.1 kg (251 lb 8 oz) 07/21/2023 115.2 kg (254 lb) 07/02/2023 113.4 kg (250 lb) 06/04/2023 113.7 kg (250 lb 9.6 oz) 05/17/2023 112.1 kg (247 lb 1.6 oz) 09/17/2022 98.9 kg (218 lb) I have reviewed the patient's medications and allergies, past medical, surgical, social and family history, updating these as appropriate. Review of Systems: The remainder of the review of systems is negative. See HPI PHYSICAL EXAMINATION: BP 119/77 Pulse 62 Wt 82 kg (180 lb 12.4 oz) BMI 27.49 kg/m? CONSTITUTIONAL: The patient appears to be of stated age, in no acute distress. HEENT: No sinus tenderness. Sclera are anicteric. Conjunctivae are clear. Eyelids are normal. NECK: No mass or thyromegaly is noted, no JVD. CHEST: The lungs are clear to auscultation with normal respiratory movement and no accessory muscle use. HEART: Heart rhythm is regular;S1S2, no murmur, no gallop, negative S3, S4 EXTREMITIES: no edema ABDOMEN: Soft and nontender; no hepatosplenomegaly, or mass are appreciated. Negative costovertebral angle tenderness. No guarding, no rebound. SKIN: There is an itchy rash bilat axillar area MUSCULOSCELETAL: Full range of motion all joints. No joint swelling. PSYCHIATRIC/NEUROLOGIC: The patient is alert and oriented x 3. Mental/emotional status is appropriate. Good eye contact. Gait stable, ambulatory without assistance. Assessment/Plan: Encounter Diagnosis ICD-10-CM 1. Contact dermatitis, unspecified contact dermatitis type, unspecified trigger L25.9 hydrocortisone 2.5 % cream 2. Mixed hyperlipidemia E78.2 Diet discussed HEALTH MAINTANCE AND PREVENTIVE CARE: Reminders: routine medical follow ups, cancer screening, calcium intake, diet, exercise, immunizations. Cedric Washington MD CNOV Observed: 06/22/2024 7:20 PM Status: COMPLETED Source: [facility] Office Visit (INMTWN) CALEBVALERIO ([id number]) 1970 M Date Time Provider Department 06/22/24 7:20 PM CEDRIC WASHINGTON INMTWYordan During your visit today, we recorded the following information about you: Pulse Blood pressure Weight 62/minute 119/77 82 kg Cedric Washington MD 06/22/2024 10:54 PM Signed Valerio Pereira Caleb is a 54 year old adult who presents for Follow Up (Itching rash on under arms, no new detergents or deodorants ) HPI: Itchy rash under his arm Work - at [employer] He feels good today He lost significant weight ~60 lbs on keto diet He is following a keto/low-carb diet He is taking a sodium/magnesium/potassium drink supplement. He stopped Lexapro. Weaned off of bupropion. Colonoscopy 11/2020 Sessile serrated polyp due 5 yrs He thinks that natural sugar from fruit triggers his cravings for sugar. 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 Up to date with dental and eye exams Creatinine Date Value Ref Range Status 02/08/2024 1.08 0.73 - 1.22 mg/dL Final 01/16/2024 1.19 0.76 - 1.27 MG/DL Final 08/27/2023 1.15 0.73 - 1.22 mg/dL Final 09/28/2022 1.00 0.73 - 1.22 mg/dL Final Lab Results Component Value Date HBA1C 5.7 01/16/2024 HBA1C 5.2 08/27/2023 HBA1C 5.0 09/28/2022 Last 10 Encounter Wt Readings: Date: Wt: 06/22/2024 82 kg (180 lb 12.4 oz) 06/08/2024 83 kg (183 lb) 02/10/2024 93.1 kg (205 lb 4 oz) 09/03/2023 106.6 kg (235 lb) 07/25/2023 114.1 kg (251 lb 8 oz) 07/21/2023 115.2 kg (254 lb) 07/02/2023 113.4 kg (250 lb) 06/04/2023 113.7 kg (250 lb 9.6 oz) 05/17/2023 112.1 kg (247 lb 1.6 oz) 09/17/2022 98.9 kg (218 lb) I have reviewed the patient's medications and allergies, past medical, surgical, social and family history, updating these as appropriate. Review of Systems: The remainder of the review of systems is negative. See HPI PHYSICAL EXAMINATION: BP 119/77 Pulse 62 Wt 82 kg (180 lb 12.4 oz) BMI 27.49 kg/m? CONSTITUTIONAL: The patient appears to be of stated age, in no acute distress. HEENT: No sinus tenderness. Sclera are anicteric. Conjunctivae are clear. Eyelids are normal. NECK: No mass or thyromegaly is noted, no JVD. CHEST: The lungs are clear to auscultation with normal respiratory movement and no accessory muscle use. HEART: Heart rhythm is regular;S1S2, no murmur, no gallop, negative S3, S4 EXTREMITIES: no edema ABDOMEN: Soft and nontender; no hepatosplenomegaly, or mass are appreciated. Negative costovertebral angle tenderness. No guarding, no rebound. SKIN: There is an itchy rash bilat axillar area MUSCULOSCELETAL: Full range of motion all joints. No joint swelling. PSYCHIATRIC/NEUROLOGIC: The patient is alert and oriented x 3. Mental/emotional status is appropriate. Good eye contact. Gait stable, ambulatory without assistance. Assessment/Plan: Encounter Diagnosis ICD-10-CM 1. Contact dermatitis, unspecified contact dermatitis type, unspecified trigger L25.9 hydrocortisone 2.5 % cream 2. Mixed hyperlipidemia E78.2 Diet discussed HEALTH MAINTANCE AND PREVENTIVE CARE: Reminders: routine medical follow ups, cancer screening, calcium intake, diet, exercise, immunizations. Cedric Washington MD Referring Provider: SELF [200] Allergies As of Date: 06/22/2024 Noted Allergy Reaction CLINDAMYCIN 03/15/2006 11 - Vomiting SEASONAL ALLERGIES 07/16/2014 3 - Cough Date Reviewed: 06/22/2024 Reviewed by: Sandra Painter LPN - Fully Assessed Reason for Visit: Follow Up [171] Cmt: Itching rash on under arms, no new detergents or deodorants Primary Visit Diagnosis:Contact dermatitis, unspecified contact dermatitis type, unspecified trigger [L25.9] Other Visit Diagnosis:Mixed hyperlipidemia [E78.2] Order(s):hydrocortisone 2.5 % creamApply 1 application to affected area two times a day.Disp: 28 gRfl: 1 Prescriptions as of 06/22/2024 - hydrocortisone 2.5 % cream Apply 1 application to affected area two times a day. - fluticasone (FLONASE) 50 mcg/actuation nasal spray SPRAY 1 SPRAY INTO EACH NOSTRIL AT BEDTIME - valACYclovir (VALTREX) 1 gram tablet Take 2 tablets by mouth two times a day. For 1 day - EPINEPHrine (EPIPEN 2-ROBLES) 0.3 mg/0.3 mL auto-injector Inject 0.3 mL intramuscularly as needed (Inject in thigh as needed for anaphylaxis and call 911). GENERIC OKAY Problem List As Of Date 06/22/2024 Noted Resolved Allergic rhinitis, cause unspecified [J30.9] 04/22/2012 Essential hypertension, benign [I10] 04/22/2012 10/01/2013 BPPV (benign paroxysmal positional vertigo), le*10/12/2020 Prescriptions ordered this encounter Disp Refills Start End HYDROCORTISONE 2.5 % TOPICAL CREAM 28 g 1 06/22/2024 Route: TOPICAL Sig: Apply 1 application to affected area two times a day. Disposition: Return for Dr Washington, physical exam. Follow-up and Disposition History for Encounter Date Provider Department Center 06/22/2024 [id number] WASHINGTON IN[facility]WN [facility] Twin Encounter Status:Closed by CEDRIC WASHINGTON on 06/22/24 PROGRESS Observed: 06/08/2024 2:21 PM Status: COMPLETED Source: [facility] HNO ID: [id number] Author: SERVANDO THURSTON MD Service: ? Author Type: Physician Type: Progress Notes Filed: 06/08/2024 15:05 Note Text: NEW PATIENT/CONSULT DERMATOLOGY REASON FOR VISIT Valerio Ellis is a 54 year old male who is scheduled at the request of Dr. Cedric Washington for Skin Check. My final recommendations will be communicated back to the requesting physician by the way of the shared medical record, fax, or via [place] Mail CC: Valerio Ellis is a 54 year old adult who presents for complaint of Derm Problem HPI: Spot on his face near his left chin he would like to have checked. Left superior ear as well. Denies personal and family history of skin cancer. REVIEW OF SYSTEMS GENERAL: No weight loss, malaise or fevers. HEENT: Negative for frequent or significant headaches, No changes in hearing or vision, no nose bleeds or other nasal problems SKIN: see hpi Temp 36.3 ?C (97.3 ?F) (Temporal) Wt 83 kg (183 lb) BMI 27.83 kg/m? PHYSICAL EXAM: General Appearance: Well appearing, alert, in no acute distress, well-hydrated, well nourished.. Skin: Few latif angiomas on upper chest, 2 mm solar lentigo near left jaw area. ASSESSMENT/PLAN: 1. Skin cancer screening - ICD9: V76.43, ICD10: Z12.83 (primary diagnosis) 2. 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 Solar lentigo - ICD9: 709.09, ICD10: L81.4 - Reassurance - Continue regular monitoring and annual screening - Sunscreen SPF 30+ when outdoors - Barrier protection like hats and clothing are helpful Servando Thurston MD June 08, 2024 2:21 PM CNOV Observed: 06/08/2024 2:20 PM Status: COMPLETED Source: [facility] Office Visit (INTMIN) VALERIO ELLIS ([id number]) 1970 M Date Time Provider Department 06/08/24 2:20 PM SERVANDO THURSTON INTMIN During your visit today, we recorded the following information about you: Temperature Weight 97.3 degrees 83 kg Servando Thurston MD 06/08/2024 3:05 PM Signed NEW PATIENT/CONSULT DERMATOLOGY REASON FOR VISIT Valerio Ellis is a 54 year old male who is scheduled at the request of Dr. Cedric Washington for Skin Check. My final recommendations will be communicated back to the requesting physician by the way of the shared medical record, fax, or via [place] Mail CC: Valerio Ellis is a 54 year old adult who presents for complaint of Derm Problem HPI: Spot on his face near his left chin he would like to have checked. Left superior ear as well. Denies personal and family history of skin cancer. REVIEW OF SYSTEMS GENERAL: No weight loss, malaise or fevers. HEENT: Negative for frequent or significant headaches, No changes in hearing or vision, no nose bleeds or other nasal problems SKIN: see hpi Temp 36.3 ?C (97.3 ?F) (Temporal) Wt 83 kg (183 lb) BMI 27.83 kg/m? PHYSICAL EXAM: General Appearance: Well appearing, alert, in no acute distress, well-hydrated, well nourished.. Skin: Few latif angiomas on upper chest, 2 mm solar lentigo near left jaw area. ASSESSMENT/PLAN: 1. Skin cancer screening - ICD9: V76.43, ICD10: Z12.83 (primary diagnosis) 2. 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 Solar lentigo - ICD9: 709.09, ICD10: L81.4 - Reassurance - Continue regular monitoring and annual screening - Sunscreen SPF 30+ when outdoors - Barrier protection like hats and clothing are helpful Servando Thurston MD June 08, 2024 2:21 PM Referring Provider: SELF [200] Allergies As of Date: 06/08/2024 Noted Allergy Reaction CLINDAMYCIN 03/15/2006 11 - Vomiting SEASONAL ALLERGIES 07/16/2014 3 - Cough Date Reviewed: 09/03/2023 Reviewed by: Sandra Painter LPN - Fully Assessed Reason for Visit: Derm Problem [33] Primary Visit Diagnosis:Skin cancer screening [Z12.83] Other Visit Diagnoses:Latif angioma [D18.01] Solar lentigo [L81.4] Prescriptions as of 06/08/2024 - fluticasone (FLONASE) 50 mcg/actuation nasal spray SPRAY 1 SPRAY INTO EACH NOSTRIL AT BEDTIME - valACYclovir (VALTREX) 1 gram tablet Take 2 tablets by mouth two times a day. For 1 day - EPINEPHrine (EPIPEN 2-ROBLES) 0.3 mg/0.3 mL auto-injector Inject 0.3 mL intramuscularly as needed (Inject in thigh as needed for anaphylaxis and call 911). GENERIC OKAY Problem List As Of Date 06/08/2024 Noted Resolved Allergic rhinitis, cause unspecified [J30.9] 04/22/2012 Essential hypertension, benign [I10] 04/22/2012 10/01/2013 BPPV (benign paroxysmal positional vertigo), le*10/12/2020 Medications Discontinued During This Encounter Prescriptions - Tgrzswkhwabrncn-Rhajlaubq-WI 2-30-10 mg/5 mL syrup (Discontinued) Reported on 07/25/2023 - escitalopram oxalate (LEXAPRO) 20 mg tablet (Discontinued) Reported on 02/10/2024 - busPIRone (BUSPAR) 10 mg tablet (Discontinued) TAKE 1/2 TABLET BY MOUTH ONCE A DAY FOR ONE WEEK THEN IF TOLERATED TAKE 1 TABLET DAILY - buPROPion XL (WELLBUTRIN XL) 300 mg 24 hr tablet (Discontinued) Take 300 mg by mouth once daily. - fluticasone-salmeterol (ADVAIR DISKUS) 100-50 mcg/dose inhaler (Discontinued) Inhale 1 Puff as instructed two times a day. RINSE AND GARGLE MOUTH WITH WATER AFTER EACH USE. - loratadine (CLARITIN ORAL) (Discontinued) Take by mouth as needed. - sodium chloride-aloe vera (AYR SALINE) topical nasal gel (Discontinued) Reported on 07/25/2023 - sodium chloride 0.65 % nasal spray (Discontinued) Use 2 Sprays in the nose as needed. Disposition: Return in about 1 year (around 06/08/2025) for Annual Skin Check. Follow-up and Disposition History for Encounter Date Provider Department Center 06/08/2024 [id number] THURSTON [facility] Encounter Status:Closed by SERVANDO THURSTON on 06/08/24 ALLERGIES DATE TYPE / CODE NAME / CODE REACTION SEVERITY SOURCE 07/16/2014 [facility]/[id number] 6(SNOMED CT) SEASONAL ALLERGIES COUGH Low [facility] 03/15/2006 [facility]/[id number] 3(SNOMED CT) CLINDAMYCIN Vomiting High [facility] ENCOUNTERS ADMIT/DISCHARGE ACCOUNT NUMBER ADMITTING ENCOUNTER CLASS LOC ATION SOURCE 09/08/2024/ 5 [id number] Ambulatory [facility]INTW [facility] 08/25/2024/ 5 [id number] [facility] 06/22/2024/ 4 [id number] [facility]:SHANELL [facility] 06/08/2024/ 4 [id number] [facility]:KARLA [facility] PAYERS ENCOUNTER GUARANTOR PAYER SUBSCRIBER SOURCE 09/08/2024 Primary Insurance:CIGNA OAPPolicy Number: [id number] Date:0373-27-08Chet Name:Stanley CURIELVirgilio: [id number] [place] [address] [facility] 08/25/2024 Primary Insurance:CIGNA OAPPolicy Number: [id number] Date:8703-15-93Zaag Name:Stanley ELLISISMAEL: [id number] [place] [id number] [facility] 06/22/2024 Primary Insurance:CIGNA OAPPolicy Number: [id number] Date:6167-48-75Rnsm Name:Stanley CURIELVirgilio: [id number] [place] [id number] [facility] 06/08/2024 Primary Insurance:CIGNA OAPPolicy Number: [id number] Date:9473-29-57Dnte Name:Stanley ELLISISMAEL: [id number] [place] [id number] [facility]
== END | disposition home or self-care (01) ==
DX: E78.2 Mixed hyperlipidemia (principal); E66.9 Obesity, unspecified; Z68.30 Body mass index [BMI] 30.0-30.9, adult
CPT/HCPCS: 76499